=== PATIENT | male | born 1955 | race Caucasian/White ===

== ENCOUNTER 2019-08-27 06:41 | Inpatient (IN) ==
--- NOTE | 2019-08-14 18:46 | ANES ---
Anesthesia Pre Procedure Eval HOME MEDICATIONS diclofenac sodium 50 mg tablet,delayed release 50 mg PO Q12H PRN #60 tab 07/11/19 [Last Taken Unknown] amlodipine 10 mg-benazepril 40 mg capsule 1 cap PO DAILY #30 cap 07/26/19 [Last Taken Unknown] chlorthalidone 25 mg tablet 12.5 mg PO DAILY #15 tab 07/30/19 [Last Taken Unknown] Allergies/Adverse Reactions: Allergies Allergy/AdvReac Type Severity Reaction Status Date / Time grass pollen Allergy Mild rhinitis Verified 07/19/19 10:33 - Planned Procedure Planned Procedure: Left Arthroplasty Total Knee Medication List Reviewed:: Yes Allergies Verified: Yes Medical History (Last Reviewed 08/14/19 @ 18:44 by Harshad Lindsey CRNA) Refused influenza vaccine (Acute) Onset Date: ~09/19/18 Hypertension (Chronic) Onset Date: Unknown GERD (gastroesophageal reflux disease) (Chronic) Onset Date: Unknown Bilateral low back pain with left-sided sciatica (Chronic) Onset Date: Unknown Bilateral knee pain (Chronic) Onset Date: Unknown CVA (cerebral vascular accident) Onset Date: Unknown no residual effects Head injury, closed Onset Date: Unknown Internal derangement of left knee Onset Date: Unknown Medial meniscus tear Onset Date: Unknown Prostatitis Onset Date: Unknown Surgical History (Last Reviewed 08/14/19 @ 18:44 by Harshad Lindsey CRNA) H/O removal of cyst Onset Date: Unknown Family History (Last Reviewed 08/14/19 @ 18:44 by Harshad Lindsey CRNA) Mother Medical history unknown Father Medical history unknown Sister Stomach cancer - Family Anesthesia History Family History:: no untoward family reactions to anesthesia, no familial bleedi ng tendencies, no family history of clotting disorders, no family history of premature - Airway/Neck/Teeth Teeth Condition: missing Denture Type: Perm crown/bridge Mallampatti Score: 2 Thyromental (T-M) distance: > 6 cm Mandibulo Hyoid distance: > 3 cm - Respiratory Smoking Status: Never smoker Discussed smoking cessation including day of surgery: No Sleep Apnea currently treated: No Sleep Apnea by current assessment: No Discussed Risks/Treatment of DANAE: No - Cardiovascular Tolerate Activity: Fair Heart Sounds: S1 & S2, Regular - Anesthesia Assessment and Plan ASA Class: PS, II Anesthesia Type Plan: Block - Left ultrasound guided adductor canal nerve block for postop analgesia, Spinal
[~2019-08-27 06:41] MED LIST: RINGER'S SOLUTION,LACTATED 1,000 ML IV PRN; ROPIVACAINE HCL/PF 100 MG, EPINEPHrine 0.2 MG, KETOROLAC TROMETHAMINE 30 MG in NORMAL S... IJ PRN; TRANEXAMIC ACID 1,000 MG in NORMAL SALINE 100 ML IV PRN; ceFAZolin SODIUM 1 GM VIAL IV PRN
[2019-08-27] MEDS ORDERED: LIDOCAINE HCL 20 ML VIAL ONE (07:31)
[2019-08-27] MEDS ORDERED: fentaNYL CITRATE/PF 50 MCG/ML AMPUL ONE ×2 (07:32→11:20)
[2019-08-27] MEDS ORDERED: PROPOFOL VIAL IV ONE (07:32)
[2019-08-27] MEDS ORDERED: ONDANSETRON HCL/PF 2 MG/ML VIAL ONE (07:32)
[2019-08-27] MEDS ORDERED: NORMAL SALINE 1,000 ML IV PRN (11:03)
[2019-08-27] MEDS ORDERED: ONDANSETRON HCL/PF 2 MG/ML VIAL IV PRN (11:03)
[2019-08-27] MEDS ORDERED: MAG HYDROX/ALUMINUM HYD/SIMETH 30 ML UDC PO PRN (11:03)
[2019-08-27] MEDS ORDERED: oxyCODONE HCL/ACETAMINOPHEN 1 TAB TABLET PO PRN (11:03)
[2019-08-27] MEDS ORDERED: ACETAMINOPHEN 500 MG TABLET PO PRN (11:03)
[2019-08-27] MEDS ORDERED: MAGNESIUM HYDROXIDE 30 ML UDC PO PRN (11:03)
--- NOTE | 2019-08-27 11:12 | OR ---
Operative Report - Dictated Report Narrative: Date: 08/27/2019 Preoperative diagnosis: Left knee degenerative joint disease. Postoperative diagnosis: Left knee degenerative joint disease. Procedure: Left total knee arthroplasty. Surgeon: Kam Le M.D. Group Supervisor Yard: None Anesthesia: Spinal with regional block and local periarticular joint injection. Complications: None Specimens: Bone for disposal. Estimated blood loss: Minimal. Tourniquet time: 77 minutes at 300 millimeters of mercury. Retained implants: Depuy Attune size 7 standard lugged cemented posterior stabilized femoral component. Size 7 rotating cemented tibial platform. 7 by 8 millimeter posterior stabilized cross-linked tibial insert. 41 millimeter medialized patella button. Indications: Mark Anthony is a 64-year-old male who has been followed in my clinic for period of time with significant complaints of left knee pain consistent with ar thritic changes. They had failed conservative measures including but not limited to activity modification, passage of time, medications, and other conservative measures. Patient wished to proceed with surgical treatment. The risks, benefits, and alternatives were discussed in clinic. The risks of , blood clots, bleeding, infection, nerve/tendon blood vessel/ injury, malposition of components, intraoperative fracture, postoperative limited range of motion, persistent pain, failure of components, and need for additional procedures. Patient wished to proceed consent was obtained after answering all questions. Procedure: After marking the correct extremity on the floor, the patient was taken to the operating room. A timeout was performed. IV antibiotics consisting of 2 g of Ancef were administered prior to the procedure. A regional followed by spinal anesthetic was induced by anesthesia. on the operative table with all bony prominences well-padded. Briceño catheter was placed and a bump was placed under the operative side buttock. SCDs and JACK hose were utilized on the nonoperative leg. A well-padded tourniquet was applied to the operative thigh. The operative leg was then pre-scrubbed with alcohol prepped and draped in a standard sterile fashion. After exsanguinating the extremity with an Esmarch bandage, the tourniquet was inflated. After marking out the anterior knee for standard incision centered over the patella, the skin was incised and dissected down to the joint retinaculum. The joint retinaculum was marked out as well as the horizontal axis of the patella, and a standard medial parapatellar arthrotomy was then made. The most proximal aspect of the quadriceps tendon and the patella tendon insertion were protected from release. A partial synovectomy was performed as well as a resection of the infrapatellar fat pad. The distal femoral fat pad proximal to the trochlea was also resected using cautery. The soft tissues were elevated off the medial aspect of the proximal tibia using a Cummins elevator ensuring that we did not transect the medial collateral ligament. Upon initial evaluation range of motion was approximately 3 degrees to 125 degrees of flexion. There were signs of advanced arthrosis in the medial and patellofemoral joint spaces. There were large marginal osteophytes which were removed with a rongeur. The knee was hyperflexed and the patella was tucked laterally. Protecting the surrounding soft tissues with Homans, an entry drill was placed down the femoral canal using Whitesides line for guidance into the entry point. The intramedullary femoral alignment gabbi was utilized in order to cut the distal femur in 5 of valgus resecting 10 millimeters of bone. Next the distal femur was sized to a size 7. An anterior referencing guide was utilized to place the distal femoral cutting block in 3 of external rotation. This was pinned into place. The rotation was confirmed both visually and based on anatomic landma rks. The 4 in 1 cutting jig of the appropriate size was utilized in order to make all bony cuts. Retractors were utilized in order to protect surrounding soft tissues. This cut did not result in any excessive notching. We then cut the box centered over the distal femur. This allowed for resection of the anterior and posterior cruciate ligaments. I then turned my attention to the preparation of the tibia. Using an extra medullary tibial alignment gabbi, 2 millimeters of bone was resected off the medial articular surface. This was made perpendicular to the mechanical axis of the joint with the alignment gabbi centered over the ankle mortise. The alignment gabbi was parallel to the mechanical axis, centered over the medial one third of the tibial tubercle, paralleling the anterior surface of the tibia. We then turned our attention to the remaining meniscus and soft tissues. These were removed while protecting the surrounding ligaments and soft tissues. The marginal osteophytes off the anterior, posterior, medial, lateral aspects of the femur and tibia were removed. The tibia was sized out to a size 7. Next the tibia was drilled and punched in an externally rotated position as confirmed with a drop gabbi. Next the trial femur and a series of tibial inserts were utilized in order to allow for full extension and maximal flexion. It was found that a 8 millimeter insert gave the best range of motion and stability at multiple flexion points as well as at full extension there was less than 2 mm of gapping both medially and laterally. There is minimal anterior translation with the knee at 90 of flexion and no signs of being able to dislocate the knee. The patella was then prepared. The initial thickness was 27 millimeters. This was reamed down to 17 millimeters parallel to the anterior surface of the patella. It was sized out to a size 41 mm medialized patella button. This was then drilled and trialed. Without any medial restraint the patella tracked appropriately and did not sublux or dislocate. At this point, it was felt these were the appropriate sized implants and all trials were removed. The standard periarticular joint injection consisting of ropivacaine, Toradol, and epinephrine were injected into the periarticular joint tissues. The bony surfaces were thoroughly irrigated with a pulsatile-suction saline irrigation device. A bone plug from the prior resected anterior chamfer cut was placed into the drill hole at the distal femur. The bony surfaces were then dried in preparation for placement of the implants. The cement was vacuum mixed per the logistics project manager's instructions. The cement was placed on the dry bony surfaces and posterior aspect of the implants. The implants were impacted into place, removing all extruded cement. At this point anesthesia administered tranexamic acid per protocol intravenously. The knee was placed in extension with axial loading with the trial insert while the cement cured. A dilute 0.35% betadyne-saline solution was used to irrigate the knee and allowed to sit in the knee while the cement cured. Once the cement cured, all remaining extruded cement was removed. The knee was placed through a range of motion with the trial insert to ensure appropriate range of motion and stability. Final range of motion was approximately 0 to 130 degrees. The knee was again thoroughly irrigated with pulsatile saline lavage. The final polyethylene insert was then impacted into place ensuring no retained soft tissues. The remaining periarticular joint injection was injected. The knee was then packed with lap sponges which were soaked with dilute betadyne solution and the tourniquet was let down. Pressure was held for approximately 2 minutes and then hemostasis was obtained using electrocautery to coagulate any bleeding vessels. The knee was then placed over a triangle and the arthrotomy was closed with interrupted #1 Vicryl after thoroughly irrigating the joint. The deep and subcutaneous tissues were closed with interrupted 0 and 3-0 Vicryl respectively. Skin was closed with a running subcutaneous 3-0 Monocryl and Prineo dressing. Xeroform, 4 x 4's, ABD, Sof-Rol, and a full leg Sam wrap were applied. All sponge, needle, blade, and instrument counts were correct prior to closing the wounds. Postoperative condition: The patient was awoken and transferred to the postanesthesia care unit in stable condition. Plan is to be admitted to the inpatient medical/surgical floor postoperatively for 24 hours of IV antibiotics, physical therapy, occupational therapy, and medical co-management. Patient will be weightbearing as tolerated with range of motion as tolerated. DVT prophylaxis will be with SCDs, JACK hose, and pharmacological anticoagulation. Anticipated hospital stay is approximately 2-4 days.
--- NOTE | 2019-08-27 11:16 | ANES ---
Post Anesthesia Discharge - Transfer of Care Transfer of Care handoff given to nurse: Yes - Discharge from PACU Discharge from PACU when meets criteria: Yes - Discharge to ASU Discharge to ASU-no complications/pt stable: Yes
--- NOTE | 2019-08-27 11:17 | ANES ---
Anesthesia Procedure Note Procedure Note: ANESTHESIA PROCEDURE NOTE Date of Procedure: 08/27/2019. Time of procedure: 0755. Performed by: Harshad Lindsey CRNA Sample Hand: None. Preprocedure diagnosis: Left knee degenerative joint disease. Post procedure diagnosis: Same. Procedure: Left ultrasound guided adductor canal block for postoperative analgesia. Indications: The patient is a 63-year-old male, requesting left ultrasound- guided abductor canal block for postoperative analgesia related to left total knee arthroplasty. Findings: See below. Details of the procedure: The tissue over the intended target site was cleansed with ChloraPrepand draped in a sterile fashion. 2 ml Lidocaine 1 % was infiltrated to the skin and subcutaneous tissue at the intended target site. Under sterile technique and ultrasound guidance a 20-gauge block needle was inserted through the left sartorius muscle to the saphenous nerve just anterior and medial to the superficial femoral artery and vein. 15 mL's of 0.5% bupivacaine plus epinephrine 1-200,000 was injected after negative aspiration for blood. Needle tip and spread of local anesthetic surrounding the saphenous nerve was observed throughout the injection with real time ultrasound visualization. The needle was then removed intact. No complications were noted. The images were retained in the Hospital medical database. EBL: Minimal. Fluids: N/A. Specimen: N/A. Post procedure condition: The patient tolerated the procedure well. No complications were noted. Thank you for this consultation. Harshad Lindsey CRNA
[2019-08-27] MEDS: MORPHINE SULFATE 2 MG/ML DISP.SYRIN IV PRN (11:40)
[2019-08-27] MEDS: oxyCODONE HCL/ACETAMINOPHEN 1 TAB TABLET PO PRN ×3 (12:19→21:08)
--- NOTE | 2019-08-27 15:18 | ANES ---
Post Anesthesia Assessment - Vital Signs Vitals: Last Vital Signs Temp 36.7 C 08/27/19 12:16 Pulse 62 08/27/19 14:31 Resp 18 08/27/19 14:31 BP 140/86 08/27/19 14:31 Pulse Ox 98 08/27/19 14:31 Airway Patency: Normal - Mental Status Level Of Consciousness: Awake - Pain Level Pain Score: 10 - N/V Assessment Nausea/Vomiting Presence: None Dehydration:: No
[2019-08-27] MEDS: ceFAZolin SODIUM 2 GM in DEXTROSE 5 % IN WATER 50 ML IV SCH ×2 (16:11)
[2019-08-27] MEDS: SENNOSIDES/DOCUSATE SODIUM 1 TAB TABLET PO SCH (20:09)
[2019-08-28] MEDS: ceFAZolin SODIUM 2 GM in DEXTROSE 5 % IN WATER 50 ML IV SCH ×4 (01:37→08:30)
[2019-08-28] MEDS: oxyCODONE HCL/ACETAMINOPHEN 1 TAB TABLET PO PRN ×4 (01:42→14:25)
[2019-08-28] MEDS: MORPHINE SULFATE 2 MG/ML DISP.SYRIN IV PRN (04:50)
[2019-08-28 06:38] LABS: Hematocrit 39.5 % (42.0-52.0); Hemoglobin 13.5 gm/dL (13.5-18.0); Mean Cell Volume 85.9 fl (78-100); Mean Corpuscular Hemoglobin 29.3 pg (27-31); Mean Corpuscular Hgb Conc 34.2 g/dl (32-36); Mean Platelet Volume 9.3 fl (8-11.3); Platelet Count 239 K/mm3 (150-450); White Blood Count 10.5 K/mm3 (4.0-10.5)
[2019-08-28 06:48] LABS: Anion Gap 10.4 mmol/L (6.8-13.8); BUN/Creatinine Ratio 11.8 (9.0-21.6); Carbon Dioxide 26.4 mmol/L (24-32.6); Estimated Creat Clear 54.7; Potassium 3.8 mmol/L (3.4-4.6)
--- NOTE | 2019-08-28 08:54 | PN ---
Subjective - Date and Time Seen Date: 08/28/19 Time: 08:51 Subjective Narrative: No events overnight. Had severe pain from [id number], better controlled now after pain medicine. No other complaints. Objective - Vitals Vitals: Last Vital Signs Temp 36.4 C 08/28/19 06:22 Pulse 84 08/28/19 06:22 Resp 20 08/28/19 06:22 BP 160/68 H 08/28/19 06:22 Pulse Ox 97 08/28/19 06:22 - Abnormal Lab Findings Abnormal Lab Findings: Abnormal Lab Results 08/28/19 08/28/19 Range/Units 06:33 06:33 RBC 4.60 L (4.7-6.0) M/mm3 Hct 39.5 L (42.0-52.0) % Est GFR (Non-Af Amer) 56 L (60-130) mL/min Random Glucose 130 H (70-110) mg/dL - Exam Exam Narrative: Gen: alert, oriented x4 Resp: breathing nonlabored on room air MSK: dressings clean and intact without drainage, able to flex and extend all toes, sensation intact to light touch, distal cap refill brisk Cauti Physician Documentation - Urinary Catheter Management Urethral (Briceño) Date of Insertion: 08/27/19 Time of Insertion: 08:53 Assessment/Plan Plan Narrative: 64 yo M s/p L total knee arthroplasty, POD #1. -WBAT, ROM as tolerated. -reg diet -oral pain meds, IV for breakthrough -DVT ppx: lovenox, teds/SCDs -continue PT/OT -dispo: discharge planning ongoing, continue inpatient care. - Problems/Diagnosis (1) Status post total knee replacement Problem: Acute (2) Osteoarthritis of knees, bilateral Problem: Chronic Qualifiers:
[2019-08-28] MEDS: amLODIPine BESYLATE 10 MG TABLET PO SCH (09:46)
[2019-08-28] MEDS: ENALAPRIL MALEATE 20 MG TABLET PO SCH (09:48)
[2019-08-28] MEDS: ENOXAPARIN SODIUM 40 MG/0.4 ML SYRG SC SCH (09:51)
[2019-08-28] MEDS ORDERED: oxyCODONE HCL 5 MG TABLET PO PRN ×2 (16:03→16:04)
[2019-08-28] MEDS: oxyCODONE HCL 5 MG TABLET PO PRN ×2 (18:56→23:44)
[2019-08-28] MEDS: SENNOSIDES/DOCUSATE SODIUM 1 TAB TABLET PO SCH (20:33)
[2019-08-29] MEDS: oxyCODONE HCL 5 MG TABLET PO PRN ×2 (05:04→10:25)
[2019-08-29 06:55] LABS: Hematocrit 38.5 % (42.0-52.0); Hemoglobin 13.5 gm/dL (13.5-18.0); Mean Cell Volume 84.4 fl (78-100); Mean Corpuscular Hemoglobin 29.6 pg (27-31); Mean Corpuscular Hgb Conc 35.1 g/dl (32-36); Mean Platelet Volume 9.2 fl (8-11.3); Platelet Count 244 K/mm3 (150-450); Red Blood Count 4.56 M/mm3 (4.7-6.0); Red Cell Distribution Width 12.6 % (11.5-14.0); White Blood Count 10.7 K/mm3 (4.0-10.5)
[2019-08-29 07:07] LABS: Anion Gap 13.7 mmol/L (6.8-13.8); BUN/Creatinine Ratio 9.7 (9.0-21.6); Calcium * 8.3 mg/dL (7.9-10.9); Carbon Dioxide 24.8 mmol/L (24-32.6); Estimated Creat Clear 65.8; Potassium 3.5 mmol/L (3.4-4.6)
[2019-08-29] MEDS: ENALAPRIL MALEATE 20 MG TABLET PO SCH (08:23)
[2019-08-29] MEDS: amLODIPine BESYLATE 10 MG TABLET PO SCH (08:24)
[2019-08-29] MEDS: ENOXAPARIN SODIUM 40 MG/0.4 ML SYRG SC SCH (10:25)
--- NOTE | 2019-08-29 14:08 | DS ---
(1) Status post total knee replacement Problem: Acute (2) Osteoarthritis of knees, bilateral Problem: Chronic Qualifiers: Description of Stay: Mark Anthony was taken to the OR on 08/27/19 for left total knee arthroplasty. He tolerated the procedure well and there were no complications. He was admitted to the floor postoperatively for pain control, postoperative monitoring, and physical therapy. He remained stable on the floor and recovered as expected. He resumed a normal diet as well as normal bladder and bowel function. His pain was well-controlled on oral pain medications. He made appropriate gains with physical therapy. His wound was followed and showed no signs of infection or other complication. He was deemed stable for discharge home with home health on 08/29/2019. Mr. Obrien is confined to the home due to postoperative immobility secondary to a total knee arthroplasty. The need for physical therapy is to improve his mobility and independence and the need for detention is for postoperative medical monitoring, monitoring of wound healing, and assistance with activities of daily living. The need for home health care skilled services is directly related to the time spent [id number] with the patient. Procedures Performed: see notes below List Procedures: Left total knee arthroplasty on 08/27/19. Results and Findings: Lab Pending Results 08/28/19 06:33: WBC 10.5, RBC 4.60 L, Hgb 13.5, Hct 39.5 L, MCV 85.9, MCH 29.3, MCHC 34.2, RDW 13.0, Plt Count 239, MPV 9.3 08/28/19 06:33: Sodium 137, Plasma Sodium 137, Potassium 3.8, Chloride 104, Carbon Dioxide 26.4, Anion Gap 10.4, BUN 16, Creatinine 1.36, Est GFR (Non-Af Amer) 56 L, BUN/Creatinine Ratio 11.8, Random Glucose 130 H, Calcium 8.0 08/29/19 06:19: WBC 10.7 H, RBC 4.56 L, Hgb 13.5, Hct 38.5 L, MCV 84.4, MCH 29.6, MCHC 35.1, RDW 12.6, Plt Count 244, MPV 9.2 08/29/19 06:19: Sodium 135, Plasma Sodium 135, Potassium 3.5, Chloride 100, Carbon Dioxide 24.8, Anion Gap 13.7, BUN 11, Creatinine 1.13, Est GFR (Non-Af Amer) 70 D, BUN/Creatinine Ratio 9.7, Random Glucose 115 H, Calcium 8.3 Discharge Location: Home Disposition: Home Health Service Home Health Agency: [facility] Condition: Good Discharge Activity: Activity as tolerated Discharge Diet: General/regular food Referrals: Kam Le MD [Staff Physician] - 09/09/19 9:00 am Problem Oriented Discharge Instructions to Patient/Family: Total Knee Replacement, Care After, [id number] Additional Patient Instructions (free text): [facility] at discharge, please fax discharge orders, DC summary and demographics to [facility] and call report. Follow-up with Dr. Le on Monday09-09-19 at 9:00am. Orthopedic Discharge Instructions: 1. WBAT, ROM as tolerated. 2. Oral pain meds. May also use tylenol in addition to oxycodone. 3. Inspect mesh dressing daily to make sure it is not peeling up and there is no drainage. If the dressing is peeling or if there is any drainage, cover with 4 x 4 gauze and tape and notify the orthopedic clinic. 4. May shower with mesh dressing uncovered as long as it is intact. 5. DVT prophylaxis: Lovenox for 7 days followed by 6 weeks of 325 mg of aspirin daily. Continue JACK hose for 6 weeks. 6. Patient to begin with in-home physical therapy for ROM and progressive strengthening. 7. Call the orthopedic clinic with any concerns regarding the patient's wound or overall medical condition. 8. Follow-up in orthopedic clinic in 2 weeks. Kam Le MD Prescriptions (Any new or edited meds): Enoxaparin Sodium [Lovenox] 40 mg SC Q24H 7 Days #7 disp.syrin Transmission Status: Pending to [place], [place] Oxycodone HCl 5 - 15 mg PO Q4H PRN #90 cap PRN Reason: Pain Transmission Status: Sent to [facility] ID Sennosides/Docusate Sodium [Senokot-S] 2 tab PO HS #30 tab Transmission Status: Pending to [place], [place] Complete Home Medications List: Complete Home Medication List: amlodipine 10 mg-benazepril 40 mg capsule 1 cap PO DAILY #30 cap 08/20/19 Enalapril Maleate [Vasotec] 40 mg PO DAILY tablet 08/29/19 Enoxaparin Sodium [Lovenox] 40 mg SC Q24H disp.syrin 08/29/19 Enoxaparin Sodium [Lovenox] 40 mg SC Q24H 7 Days #7 disp.syrin 08/29/19 Oxycodone HCl 5 - 15 mg PO Q4H PRN #90 cap 08/29/19 Sennosides/Docusate Sodium [Senokot-S] 2 tab PO HS #30 tab 08/29/19 oxyCODONE HCL [Oxycodone] 5 mg PO Q4H PRN tablet 08/29/19 oxyCODONE HCL [Oxycodone] 10 mg PO Q4H PRN tablet 08/29/19 oxyCODONE HCL [Oxycodone] 15 mg PO Q4H PRN tablet 08/29/19
[2019-08-29 15:25] VITALS: BP 157/77
== END 2019-08-29 15:50 | disposition home health service (06) | DRG 470 ==
LOC: MS 06:41 → EDSTATUS 08:30
PROVIDERS: ADMIT Orthopaedic Surgery; ATTEND Orthopaedic Surgery
DX: K21.9 Gastro-esophageal reflux disease without esophagitis; N17.9 Acute kidney failure, unspecified; Z86.73 Personal history of transient ischemic attack (TIA), and cerebral infarction without residual deficits; R06.09 Other forms of dyspnea; I10 Essential (primary) hypertension; M17.12 Unilateral primary osteoarthritis, left knee; T84.84XA Pain due to internal orthopedic prosthetic devices, implants and grafts, initial encounter; M54.5 Low back pain
CPT/HCPCS: 36415; 73560; 80048; 85027; 97110; 97116; 97161; 97165; 97530; 97535; J2405